=== PATIENT | female | born 1955 | race Caucasian/White ===

== ENCOUNTER 2020-04-19 07:20 | Outpatient (CLI) | payer OTHER ==
[2020-04-19 08:56] LABS: Cardiac Risk 2.6 (Less than 4.5)
== END 2020-04-19 07:21 | disposition home or self-care (01) ==
LOC: BURLAB 07:20
PROVIDERS: ATTEND Internal Medicine Cardiovascular Disease
DX: E78.00 Pure hypercholesterolemia, unspecified (principal)
CPT/HCPCS: 80061

== ENCOUNTER 2020-10-04 08:29 | Outpatient (CLI) | payer OTHER ==
[2020-10-04 11:40] LABS: #Eosinphils 0.1 thou/uL (0.0-0.7); #Lymphocytes 2.3 thou/uL (1.20-3.40); #Monocytes 0.3 thou/uL (0.11-0.59); #Neutrophils 2.4 thou/uL (1.40-6.50); %Eosinophils 1.1 % (0.0-10.0); %Lymphocytes 44.7 % (21.0-51.0); %Monocytes 5.7 % (0.0-10.0); %Neutrophils 47.5 % (42.0-75.0); Hemoglobin 13.5 g/dL (12.0-16.0); Mean Corpuscular Hemoglobin 28.9 pg (27.0-31.0); Mean Corpuscular Volume 90.3 fL (78.0-98.0); Mean Platelet Volume 7.6 fL (7.4-10.4); Platelet Count 271 thou/uL (130-400); RBC Distribution Width 12.7 % (11.5-14.5); Red Blood Cell (RBC) Count 4.69 mill/uL (4.20-5.40); White Blood Cell (WBC) Count 5.1 thou/uL (4.8-10.8)
[2020-10-04 12:20] LABS: ALT (SGPT) 23 U/L (8-55); AST (SGOT) 23 U/L (5-34); Alkaline Phosphatase 46 U/L (40-110); Anion Gap 12 mmol/L (10-20); BUN (Urea Nitrogen) 13 mg/dL (9.8-20.1); Bilirubin, Total 0.5 mg/dL (0.2-1.2); Calc. Creatinine Clearance 0 mL/min (70-130); Calcium 9.6 mg/dL (7.8-10.44); Carbon Dioxide 30 mmol/L (23-31); Cardiac Risk 2.9 (Less than 4.5); Chloride 103 mmol/L (98-107); Cholesterol 109 mg/dl (< 200 Desired); Globulin 2.7 g/dL (2.4-3.5); Glucose 104 mg/dL (80-115); HDL Cholesterol 38 mg/dL (>60 Neg Risk); LDL Cholesterol, Calculated 55 mg/dL; Potassium 4.4 mmol/L (3.5-5.1); Protein, Total 6.7 g/dL (5.8-8.1); Sodium 141 mmol/L (136-145); Triglycerides 82 mg/dL (Less than 150)
== END 2020-10-04 08:30 | disposition home or self-care (01) ==
LOC: BURLAB 08:29
PROVIDERS: ATTEND Internal Medicine Cardiovascular Disease
DX: I25.10 Atherosclerotic heart disease of native coronary artery without angina pectoris (principal); E78.00 Pure hypercholesterolemia, unspecified
CPT/HCPCS: 36415; 80053; 80061; 85025